=== PATIENT | female | born 1935 | race Caucasian/White ===

== ENCOUNTER 2017-09-27 16:16 | Inpatient (IN) | payer MEDICARE, OTHER ==
[~2017-09-27] VITALS: Ht 149.9 cm; Wt 60.8 kg
[~2017-09-27 16:16] MED LIST: ALEN70; AMLO5; AMLO5 PO; ASPI81CH PO; ASPI81EC; ATECHL; ATEN25 PO; ATEN50; ATOR10; Amlodipine Bes2.5 MG PO; BCOIRO PO; BILBERRY; CALCAVITDA PO; CHOL10002 PO; ERGO400 PO; EXTRA STRENGTH500 MG PO; FERR325 PO; GLUCHON PO; HYDACE10B PO; HYDACE5 PO; HYDCHL25; HYDR1TAB94 PO; Hair, Skin & N1 EACH PO; IBUP400; IBUP600 PO; IBUP800; JOINT HEALTH T1 EACH PO; K-Dur20 MEQ PO; LEVSOD75 PO; LOSA50 PO; LOSARTAN POTAS100 MG PO; MIRT15 PO; MULTIVITAMIN PO; MULVITA; NAPR500 PO; Norvasc2.5 MG PO; OLME20; OMEPRAZOLE MAGN20 MG PO; OXYB5 PO; OXYB5ER PO; Omeprazole20 M1 PO; PRAV20 PO; PRAVASTATIN SOD10 MG PO; PRED20 PO; PROM25 PO; Prilosec Otc20 MG PO; RANI150 PO; SPIHYD; Stool Softener100 MG PO; Synthroid75 MCG PO; TENORETIC PO; Tylenol325 MG PO; UNKNOWN CHOLESTEROL PO; Vitamin B Comple1 EA PO; Vitamin C100 M1 PO; Voltaren100 GM TP; [UNRECOGNIZED DRUG - OTHER] PO; [UNRECOGNIZED DRUG - OTHER] PO
[2017-10-19 04:30] LABS: BASOPHILS ABSOLUTE AUTO 0.02 K/mm3 (0.00-0.23); BASOPHILS PERCENT AUTO 0 % (0-2); EOSINOPHILS PERCENT AUTO 0 % (0-6); Hemoglobin 9.7 g/dL (11.5-16.0); IMMATURE GRAN ABSOLUTE AUTO 0.04 K/mm3 (0.00-0.10); IMMATURE GRAN PERCENT AUTO 0 % (0-1); LYMPHOCYTES PERCENT AUTO 13 % (21-46); MONOCYTES ABSOLUTE AUTO 1.16 K/mm3 (0.16-1.47); MONOCYTES PERCENT AUTO 11 % (4-13); Mean Corpuscular HGB 31.4 pg (26.0-34.0); Mean Corpuscular HGB Conc 33.4 g/dL (31.5-36.5); Mean Corpuscular Volume 94 fL (80-100); Mean Platelet Volume 8.9 fL (9.1-12.4); NEUTROPHILS ABSOLUTE AUTO 8.27 K/mm3 (1.96-9.15); NEUTROPHILS PERCENT AUTO 76 % (41-73); Platelet Count 299 K/mm3 (150-400); RDW Coefficient Variation 13.4 % (11.7-14.2); RDW Standard Deviation 45.6 fL (35.1-46.3); Red Blood Cell Count 3.09 M/mm3 (3.80-5.20); White Blood Cell Count 10.89 K/mm3 (4.00-11.30)
[2017-10-19 04:49] LABS: Anion Gap 8 mmol/L (6-16); Blood Urea Nitrogen 13 mg/dL (8-24); Bun/Creatinine Ratio 22.5 (12.0-20.0); CO2, Blood 27 mmol/L (21-32); Calcium, Blood 8.9 mg/dL (8.5-10.1); Chloride, Blood 102 mmol/L (98-108); Creatinine, Blood 0.58 mg/dL (0.40-1.00); Glomerular Filtration Rate >60 (60-); Glucose, Blood 117 mg/dL (70-99); Potassium, Blood 4.2 mmol/L (3.5-5.5); Sodium, Blood 137 mmol/L (136-145)
[2017-10-20] MEDS ORDERED: Percocet 5-3251 EACH PO (16:11)
[2017-10-20] MEDS ORDERED: ASPI325EC PO (16:12)
[2018-01-03] MEDS ORDERED: STOOL SOFTENER100 MG PO (09:04)
[2018-01-03] MEDS ORDERED: MOVE FREE JOIN1 EACH PO (09:05)
== END 2017-10-21 14:25 | disposition home health service (06) | DRG 470 ==
LOC: SURS 10-18 05:48 → PRE IP 10-18 07:30 → SURS 10-18 10:56
PROVIDERS: Orthopaedic Surgery
PROC: 8E0YXBZ Computer Assisted Procedure of Lower Extremity (ICD-10-PCS; 2017-10-18)
PROC: 0SRD0J9 Replacement of Left Knee Joint with Synthetic Substitute, Cemented, Open Approach (ICD-10-PCS; principal; 2017-10-18 07:30)
DX: M17.12 Unilateral primary osteoarthritis, left knee (principal); E03.9 Hypothyroidism, unspecified; I10 Essential (primary) hypertension; E78.00 Pure hypercholesterolemia, unspecified; M81.0 Age-related osteoporosis without current pathological fracture; I25.10 Atherosclerotic heart disease of native coronary artery without angina pectoris; K21.9 Gastro-esophageal reflux disease without esophagitis; Z79.899 Other long term (current) drug therapy
CPT/HCPCS: 36415; 73560-LT; 80048; 83735; 85025; 86850; 86900; 86901; 88300; 97110; 97116; 97161; 97530; C1713; C1776; G8978; G8979; G8980; J0171; J0690; J0735; J1100; J1170; J1885; J2250; J2370; J2405; J2550; J2765; J2795; J3010; J3370; J7120

== ENCOUNTER → 2017-11-06 | Outpatient (CLI) | payer MEDICARE, OTHER ==
[~2017-11-06] MED LIST changes: +ASPI325EC PO; +MOVE FREE JOIN1 EACH PO; +Percocet 5-3251 EACH PO; +STOOL SOFTENER100 MG PO
[2017-11-06 12:15] LABS: Source, Urine Clean Catch
[2017-11-06 14:46] LABS: Bilirubin, Urine Neg (Neg); Blood, Urine 4+ (Neg); Glucose Qualitative, Urine Neg (Neg); Ketones, Urine 2+ (Neg); Leukocyte Esterase, Urine 3+ (Neg); Nitrite, Urine Neg (Neg); Protein, Urine 3+ (Neg); Urobilinogen, Urine 1+ (Normal)
[2017-11-06 15:00] LABS: Appearance, Urine Cloudy (Clear); Color, Urine Yellow (P-Yellow)
[2017-11-06 15:01] LABS: Amorphous Light (0-Heavy); Bacteria Mod /hpf; Red Blood Cells, Urine TNTC /hpf (0-2); Squamous Epithelial Cells Few /hpf (Few); White Blood Cells, Urine TNTC /hpf (0-5)
== END ==
LOC: LAB SRC 12:14
PROVIDERS: Internal Medicine
DX: N39.0 Urinary tract infection, site not specified (principal)
CPT/HCPCS: 81001; 87077; 87086; 87186

== ENCOUNTER 2018-01-17 06:01 | Day surgery (SDC) | payer MEDICARE, OTHER ==
[~2018-01-17] VITALS: Ht 149.9 cm; Wt 62.6 kg
[2018-01-18 05:17] LABS: BASOPHILS ABSOLUTE AUTO 0.02 K/mm3 (0.00-0.23); BASOPHILS PERCENT AUTO 0 % (0-2); EOSINOPHILS ABSOLUTE AUTO 0.07 K/mm3 (0.00-0.68); EOSINOPHILS PERCENT AUTO 1 % (0-6); Hematocrit 30.9 % (33.0-51.0); Hemoglobin 10.3 g/dL (11.5-16.0); IMMATURE GRAN ABSOLUTE AUTO 0.03 K/mm3 (0.00-0.10); IMMATURE GRAN PERCENT AUTO 0 % (0-1); LYMPHOCYTES PERCENT AUTO 18 % (21-46); MONOCYTES ABSOLUTE AUTO 0.98 K/mm3 (0.16-1.47); MONOCYTES PERCENT AUTO 9 % (4-13); Mean Corpuscular HGB 30.6 pg (26.0-34.0); Mean Corpuscular HGB Conc 33.3 g/dL (31.5-36.5); Mean Corpuscular Volume 92 fL (80-100); Mean Platelet Volume 9.1 fL (9.1-12.4); NEUTROPHILS ABSOLUTE AUTO 7.49 K/mm3 (1.96-9.15); NEUTROPHILS PERCENT AUTO 71 % (41-73); Platelet Count 278 K/mm3 (150-400); RDW Coefficient Variation 13.5 % (11.7-14.2); RDW Standard Deviation 45.1 fL (35.1-46.3); Red Blood Cell Count 3.37 M/mm3 (3.80-5.20); White Blood Cell Count 10.49 K/mm3 (4.00-11.30)
[2018-01-18 05:30] LABS: Anion Gap 8 mmol/L (6-16); Blood Urea Nitrogen 10 mg/dL (8-24); Bun/Creatinine Ratio 16.7 (12.0-20.0); CO2, Blood 24 mmol/L (21-32); Calcium, Blood 8.6 mg/dL (8.5-10.1); Chloride, Blood 107 mmol/L (98-108); Glomerular Filtration Rate >60 (60-); Glucose, Blood 102 mg/dL (70-99); Magnesium, Blood 2.2 mg/dL (1.6-2.4); Sodium, Blood 139 mmol/L (136-145)
[2018-01-18] MEDS ORDERED: ASPI325EC PO (08:37)
[2018-01-18] MEDS ORDERED: Percocet 5-3251 EACH PO (08:38)
[2018-01-18] MEDS ORDERED: PROM25 PO (08:39)
== END 2018-01-18 11:24 | disposition home or self-care (01) ==
LOC: ORSCMMR 06:01 → PRE IP 06:01 → SURS 06:01 → PRE IP 07:30 → EDSTATUS 07:30 → SURS 10:40 → ORSCMMR 01-18 11:24
PROVIDERS: Orthopaedic Surgery
PROC: 0SRC0J9 Replacement of Right Knee Joint with Synthetic Substitute, Cemented, Open Approach (ICD-10-PCS; principal; 2018-01-17 07:30)
DX: M17.11 Unilateral primary osteoarthritis, right knee (principal); Z01.812 Encounter for preprocedural laboratory examination; Z01.818 Encounter for other preprocedural examination; I10 Essential (primary) hypertension; E03.9 Hypothyroidism, unspecified; Z79.899 Other long term (current) drug therapy
CPT/HCPCS: 36415; 73560-RT; 80048; 83735; 85025; 86850; 86900; 86901; 88300; 97110; 97116; 97162; 97530; C1713; C1776; G8978; G8979; J0171; J0690; J0735; J1100; J1885; J2250; J2405; J2795; J3010; J3370; J7120

== ENCOUNTER 2021-10-06 06:03 | Day surgery (SDC) | payer MEDICARE, OTHER ==
[~2021-10-06] VITALS: Ht 149.9 cm; Wt 66.8 kg
[~2021-10-06 06:03] MED LIST changes: -CALCAVITDA PO; +CALCIUM 500 MG1 EAC2 PO; +PEPCID20 MG PO; +POTCHL20ER PO
--- NOTE | 2021-10-06 06:20 | NUR ---
Ambulatory in Day Surgery. Pre-Op teaching done. Pt verbalizes understanding. Patient confirms NPO status and agrees with scheduled surgery. History, Chart, Medications and Allergies reviewed before start of procedure. Lungs clear T/O to Auscultation.
--- NOTE | 2021-10-06 13:54 | NUR ---
PATIENT CAME BACK FROM PACU TODAY 10/06/21 AT 1100. POD 0 LEFT TOTAL HIP PATIENT CAME BACK ALERT AND ORIENTED X4. VS ARE WNL AND IS ON RA. PAIN IS A 2/10 AND PATIENT REFUSES PAIN MEDICATION AT THIS TIME. LEFT HIP HAS 3 BULKY FOAM DRESSING THAT ARE C/D/I. SHE DENIES NUMBNESS AND TINGLING. PATIENT IS ABLE TO MOVE FINGERS AND TOES. TOLERATING SMALL AMOUNTS OF PO INTAKE. PATIENT IS VOIDING. SBA WITH FWW AND GAIT BELT. CALL LIGHT WITHIN REACH.
--- NOTE | 2021-10-06 16:40 | NUR ---
SHIFT SUMMARY: POD 0 LEFT TOTAL HIP PATIENT IS ALERT AND ORIENTED X4. VS ARE WNL AND IS ON RA. PAIN IS MANAGED WITH PO PAIN MEDICATION. PATIENT DID HAVE SMALL AMOUNT OF EMESIS RIGHT AFTER PACU BUT HAS SINCE BEEN TOLERATING PO INTAKE AFTER ZOFRAN AND PHENERGAN. SHE IS VOIDING YELLOW URINE. SHE IS A SBA TO THE BATHROOM WITH GAIT BELT AND FWW. LEFT HIP HAS GAUZE AND SPONGE DRESSING THAT IS C/D/I. DENIES NUMBNESS OR TINGLING. CALLS APPROPRIATELY. CALL LIGHT WITHIN REACH. THE PLAN IS TO CONTINUE PAIN MANAGEMENT AND TO WORK WITH PT AGIAN IN THE MORNING. POSSIBLE DISCHARGE HOME IF APPROPRIATE TOMORROW.
[2021-10-07 05:22] LABS: BASOPHILS ABSOLUTE AUTO 0.01 K/mm3 (0.00-0.23); BASOPHILS PERCENT AUTO 0 % (0-2); EOSINOPHILS PERCENT AUTO 0 % (0-6); Hemoglobin 9.3 g/dL (11.5-16.0); IMMATURE GRAN ABSOLUTE AUTO 0.03 K/mm3 (0.00-0.10); IMMATURE GRAN PERCENT AUTO 0 % (0-1); LYMPHOCYTES ABSOLUTE AUTO 1.37 K/mm3 (0.84-5.20); LYMPHOCYTES PERCENT AUTO 16 % (21-46); MONOCYTES ABSOLUTE AUTO 0.79 K/mm3 (0.16-1.47); MONOCYTES PERCENT AUTO 9 % (4-13); Mean Corpuscular HGB Conc 33.2 g/dL (31.5-36.5); Mean Corpuscular Volume 96 fL (80-100); Mean Platelet Volume 8.9 fL (9.1-12.4); NEUTROPHILS ABSOLUTE AUTO 6.51 K/mm3 (1.96-9.15); NEUTROPHILS PERCENT AUTO 75 % (41-73); Platelet Count 292 K/mm3 (150-400); RDW Coefficient Variation 13.9 % (11.7-14.2); RDW Standard Deviation 49.1 fL (35.1-46.3); Red Blood Cell Count 2.91 M/mm3 (3.80-5.20); White Blood Cell Count 8.71 K/mm3 (4.00-11.30)
[2021-10-07 05:25] LABS: Anion Gap 5 mmol/L (6-16); Blood Urea Nitrogen 14 mg/dL (8-24); Bun/Creatinine Ratio 18.7 (12.0-20.0); CO2, Blood 28 mmol/L (21-32); Calcium, Blood 8.6 mg/dL (8.5-10.1); Chloride, Blood 102 mmol/L (98-108); Creatinine, Blood 0.75 mg/dL (0.40-1.00); Glomerular Filtration Rate >60 (60-); Glucose, Blood 125 mg/dL (70-99); Potassium, Blood 4.3 mmol/L (3.5-5.5); Sodium, Blood 135 mmol/L (136-145)
--- NOTE | 2021-10-07 06:16 | NUR ---
ALERT AND ORIENTED X'S 4. NO ACUTE DISTRESS NOTED. RECEIVED SCHEDULED TYLENOL AND TORADOL FOR PAIN MANAGEMENT DUE TO LEFT HIP PAIN, EFFECTIVE RELIEF. TOLERATING PO FLUIDS, VOIDING WITHOUT DIFFICULTY. DRESSING CLEAN DRY AND INTACT TO LEFT HIP. AMBULATES WELL WITH WALKER WITH CONTACT GUARD. SAFETY MAINTAINED, CALL COLON IN REACH.
[2021-10-07] MEDS ORDERED: ENOX40I SC (08:54)
[2021-10-07] MEDS ORDERED: PROM25 PO (08:55)
[2021-10-07] MEDS ORDERED: ROXICODONE5 MG PO (08:55)
--- NOTE | 2021-10-07 12:26 | NUR ---
DISCHARGE SUMMARY PT A&OX4, VSS/RA, TIMOTHY PO, VOIDING, PAIN MANAGED WITH TYLENOL AND TORADOL.IV DCD. AMB SBA/FWW/GB. LEFT FLOOR VIA WC WITH SN, TO GO HOME WITH DAUGHTER, WITH ALL PERSONAL POSSESSIONS INCLUDING DC PACKET, 2 AQUACEL DRESSINGS; PT REP HAVING HER LOVENOX AND NARCOTIC SCRIPTS FILLED AND AT HOME.
== END 2021-10-07 12:25 | disposition home or self-care (01) ==
LOC: ORSCMMR 06:03 → SURS 11:09 → ORSCMMR 10-07 12:25
PROVIDERS: Orthopaedic Surgery
PROC: 0SRB01A Replacement of Left Hip Joint with Metal Synthetic Substitute, Uncemented, Open Approach (ICD-10-PCS; principal; 2021-10-06 07:30)
PROC: 8E0YXBZ Computer Assisted Procedure of Lower Extremity (ICD-10-PCS; principal; 2021-10-06 07:30)
DX: M16.12 Unilateral primary osteoarthritis, left hip (principal); I10 Essential (primary) hypertension; E03.9 Hypothyroidism, unspecified; Z96.641 Presence of right artificial hip joint; Z96.653 Presence of artificial knee joint, bilateral
CPT/HCPCS: 36415; 72170; 80048; 83735; 85025; 97110; 97116; 97162; 97165; 97530; 97535; A9270; C1713; C1776; J0171; J0690; J0735; J1100; J1650; J1885; J2250; J2370; J2405; J2704; J2795; J3010; J3370; J7050; J7120

== ENCOUNTER → 2022-09-19 | Outpatient (CLI) | payer MEDICARE, OTHER ==
[~2022-09-19] MED LIST changes: +ENOX40I SC; +ROXICODONE5 MG PO
== END | disposition home or self-care (01) ==
LOC: LAB 14:43 → LAB SHORT 14:43
DX: D23.5 Other benign neoplasm of skin of trunk (principal)
CPT/HCPCS: 88305

== ENCOUNTER → 2024-11-15 | Outpatient (CLI) | payer MEDICARE, OTHER ==
[~2024-11-15] MED LIST changes: +CEPH500 PO; +ONDA4ODT MM
[2024-11-15 12:42] LABS: BASOPHILS ABSOLUTE AUTO 0.07 K/mm3 (0.00-0.23); BASOPHILS PERCENT AUTO 1 % (0-2); EOSINOPHILS ABSOLUTE AUTO 0.09 K/mm3 (0.00-0.68); EOSINOPHILS PERCENT AUTO 1 % (0-6); Hemoglobin 13.7 g/dL (11.5-16.0); IMMATURE GRAN ABSOLUTE AUTO 0.02 K/mm3 (0.00-0.10); IMMATURE GRAN PERCENT AUTO 0 % (0-1); LYMPHOCYTES ABSOLUTE AUTO 2.53 K/mm3 (0.84-5.20); LYMPHOCYTES PERCENT AUTO 40 % (21-46); MONOCYTES ABSOLUTE AUTO 0.43 K/mm3 (0.16-1.47); MONOCYTES PERCENT AUTO 7 % (4-13); Mean Corpuscular HGB 32.1 pg (26.0-34.0); Mean Corpuscular HGB Conc 32.6 g/dL (31.5-36.5); Mean Corpuscular Volume 98 fL (80-100); Mean Platelet Volume 10.2 fL (9.1-12.4); NEUTROPHILS ABSOLUTE AUTO 3.27 K/mm3 (1.96-9.15); NEUTROPHILS PERCENT AUTO 51 % (41-73); Platelet Count 321 K/mm3 (150-400); RDW Standard Deviation 50.3 fL (35.1-46.3); Red Blood Cell Count 4.27 M/mm3 (3.80-5.20); White Blood Cell Count 6.41 K/mm3 (4.00-11.30)
[2024-11-15 12:56] LABS: Albumin, Blood 3.4 g/dL (3.4-5.0); Albumin/Globulin Ratio 0.9 (0.8-1.8); Bilirubin, Total 0.3 mg/dL (0.1-1.0); Bun/Creatinine Ratio 19.7 (12.0-20.0); Calcium, Blood 9.3 mg/dL (8.5-10.1); Creatinine, Blood 0.51 mg/dL (0.40-1.00); Globulin, Blood 3.7 g/dL (2.2-4.0); Potassium, Blood 3.6 mmol/L (3.5-5.5); Thyroid Stimulating Hormone 8.36 uIU/mL (0.360-4.800); Total Protein, Blood 7.1 g/dL (6.4-8.2)
== END ==
LOC: LAB 09:19 → LAB SHORT 09:19
PROVIDERS: Internal Medicine
DX: R39.9 Unspecified symptoms and signs involving the genitourinary system (principal); R63.4 Abnormal weight loss
CPT/HCPCS: 80053; 84443; 85025

== ENCOUNTER → 2024-11-19 | Outpatient (CLI) | payer MEDICARE, OTHER ==
[2024-11-19 12:30] LABS: Source, Urine Clean Catch
[2024-11-19 13:31] LABS: Bilirubin, Urine Neg (Neg); Blood, Urine Neg (Neg); Color, Urine Yellow (P-Yellow); Glucose Qualitative, Urine Neg (Neg); Ketones, Urine Neg (Neg); Leukocyte Esterase, Urine 1+ (Neg); Nitrite, Urine Neg (Neg); Protein, Urine 1+ (Neg); Urobilinogen, Urine NORM (Normal); pH, Urine 6.5 (5.0-8.0)
[2024-11-19 13:53] LABS: Appearance, Urine Hazy (Clear)
[2024-11-19 13:54] LABS: Bacteria Mod /hpf; Mucus Light (0-Heavy); Red Blood Cells, Urine 0-2 /hpf (0-2); Squamous Epithelial Cells Rare /hpf (Few)
== END ==
LOC: LAB 10:45 → LAB SHORT 10:45
PROVIDERS: Internal Medicine
DX: N39.0 Urinary tract infection, site not specified (principal)
CPT/HCPCS: 81001; 87086

== ENCOUNTER → 2024-12-30 | Outpatient (CLI) | payer MEDICARE, OTHER ==
[2024-12-30 17:36] LABS: BASOPHILS ABSOLUTE AUTO 0.05 K/mm3 (0.00-0.23); BASOPHILS PERCENT AUTO 1 % (0-2); EOSINOPHILS PERCENT AUTO 2 % (0-6); Hematocrit 37.2 % (33.0-51.0); Hemoglobin 12.4 g/dL (11.5-16.0); IMMATURE GRAN PERCENT AUTO 0 % (0-1); LYMPHOCYTES ABSOLUTE AUTO 2.26 K/mm3 (0.84-5.20); LYMPHOCYTES PERCENT AUTO 41 % (21-46); MONOCYTES ABSOLUTE AUTO 0.46 K/mm3 (0.16-1.47); MONOCYTES PERCENT AUTO 8 % (4-13); Mean Corpuscular HGB 32.2 pg (26.0-34.0); Mean Corpuscular HGB Conc 33.3 g/dL (31.5-36.5); Mean Corpuscular Volume 97 fL (80-100); Mean Platelet Volume 9.4 fL (9.1-12.4); NEUTROPHILS ABSOLUTE AUTO 2.66 K/mm3 (1.96-9.15); NEUTROPHILS PERCENT AUTO 48 % (41-73); Platelet Count 333 K/mm3 (150-400); Red Blood Cell Count 3.85 M/mm3 (3.80-5.20); White Blood Cell Count 5.53 K/mm3 (4.00-11.30)
[2024-12-30 20:04] LABS: Albumin, Blood 3.1 g/dL (3.4-5.0); Bilirubin, Total 0.3 mg/dL (0.1-1.0); Bun/Creatinine Ratio 13.7 (12.0-20.0); Calcium, Blood 8.8 mg/dL (8.5-10.1); Creatinine, Blood 0.59 mg/dL (0.40-1.00); Potassium, Blood 3.7 mmol/L (3.5-5.5); Thyroid Stimulating Hormone 1.42 uIU/mL (0.360-4.800); Total Protein, Blood 6.1 g/dL (6.4-8.2)
== END | disposition home or self-care (01) ==
LOC: LAB 15:51 → LAB SHORT 15:51
PROVIDERS: Internal Medicine
DX: M79.10 Myalgia, unspecified site (principal); E03.9 Hypothyroidism, unspecified
CPT/HCPCS: 80053; 84443; 85025; 85651

== ENCOUNTER 2025-01-14 11:09 | Emergency (ER) | payer MEDICARE, OTHER ==
[~2025-01-14] VITALS: Ht 147.3 cm; Wt 49.9 kg
[2025-01-14] MEDS ORDERED: Ondansetron HCl 2 MG / ML 2ML Vial IV ONE (11:45)
[2025-01-14] MEDS ORDERED: FentaNYL Citrate 50 MCG/ML 2 ML Injection IV ONE (11:45)
[2025-01-14 12:07] LABS: BASOPHILS ABSOLUTE AUTO 0.02 K/mm3 (0.00-0.23); BASOPHILS PERCENT AUTO 0 % (0-2); EOSINOPHILS PERCENT AUTO 0 % (0-6); Hematocrit 39.5 % (33.0-51.0); Hemoglobin 13.1 g/dL (11.5-16.0); IMMATURE GRAN ABSOLUTE AUTO 0.03 K/mm3 (0.00-0.10); IMMATURE GRAN PERCENT AUTO 0 % (0-1); LYMPHOCYTES ABSOLUTE AUTO 0.96 K/mm3 (0.84-5.20); LYMPHOCYTES PERCENT AUTO 9 % (21-46); MONOCYTES ABSOLUTE AUTO 0.66 K/mm3 (0.16-1.47); MONOCYTES PERCENT AUTO 6 % (4-13); Mean Corpuscular HGB 32.1 pg (26.0-34.0); Mean Corpuscular HGB Conc 33.2 g/dL (31.5-36.5); Mean Corpuscular Volume 97 fL (80-100); Mean Platelet Volume 9.2 fL (9.1-12.4); NEUTROPHILS PERCENT AUTO 84 % (41-73); Platelet Count 334 K/mm3 (150-400); RDW Standard Deviation 50.3 fL (35.1-46.3); Red Blood Cell Count 4.08 M/mm3 (3.80-5.20); White Blood Cell Count 10.27 K/mm3 (4.00-11.30)
[2025-01-14 12:35] LABS: Bun/Creatinine Ratio 12.7 (12.0-20.0); Calcium, Blood 9.1 mg/dL (8.5-10.1); Creatinine, Blood 0.55 mg/dL (0.40-1.00); Potassium, Blood 3.6 mmol/L (3.5-5.5)
[2025-01-14] MEDS ORDERED: HYDR1TAB94 PO (16:12)
[2025-01-14] MEDS ORDERED: DOC250 PO (16:12)
[2025-01-14 17:30] VITALS: BP 153/96
== END 2025-01-14 17:36 | disposition home or self-care (01) ==
LOC: ER 11:09
PROVIDERS: Emergency Medicine
DX: S72.141A Displaced intertrochanteric fracture of right femur, initial encounter for closed fracture (principal); M97.01XA Periprosthetic fracture around internal prosthetic right hip joint, initial encounter; M81.0 Age-related osteoporosis without current pathological fracture; I10 Essential (primary) hypertension; E78.5 Hyperlipidemia, unspecified; E03.9 Hypothyroidism, unspecified; Z96.643 Presence of artificial hip joint, bilateral; Z88.6 Allergy status to analgesic agent; Z88.8 Allergy status to other drugs, medicaments and biological substances; Z79.890 Hormone replacement therapy; Z79.899 Other long term (current) drug therapy; W18.30XA Fall on same level, unspecified, initial encounter
CPT/HCPCS: 72192; 73502; 80048; 85025; 96374; 96375; 99284-25; J2405; J3010

== ENCOUNTER 2025-04-25 09:42 | Inpatient (IN) | payer MEDICARE, OTHER ==
[~2025-04-25] VITALS: Ht 154.9 cm; Wt 51.0 kg
[~2025-04-25 09:42] MED LIST changes: +DOC250 PO
[2025-04-25] MEDS ORDERED: Ondansetron HCl 2 MG / ML 2ML Vial IV ONE (10:20)
[2025-04-25] MEDS ORDERED: LORazepam 2 MG/ML 1ML Injection IV ONE (10:55)
[2025-04-25] MEDS ORDERED: Morphine Sulfate 4 MG/1 ML Injection IV ONE (10:55)
[2025-04-25 12:55] LABS: BASOPHILS ABSOLUTE AUTO 0.05 K/mm3 (0.00-0.23); BASOPHILS PERCENT AUTO 1 % (0-2); EOSINOPHILS ABSOLUTE AUTO 0.08 K/mm3 (0.00-0.68); EOSINOPHILS PERCENT AUTO 1 % (0-6); Hematocrit 39.9 % (33.0-51.0); Hemoglobin 13.2 g/dL (11.5-16.0); IMMATURE GRAN ABSOLUTE AUTO 0.02 K/mm3 (0.00-0.10); IMMATURE GRAN PERCENT AUTO 0 % (0-1); LYMPHOCYTES ABSOLUTE AUTO 1.98 K/mm3 (0.84-5.20); LYMPHOCYTES PERCENT AUTO 26 % (21-46); MONOCYTES ABSOLUTE AUTO 0.42 K/mm3 (0.16-1.47); MONOCYTES PERCENT AUTO 6 % (4-13); Mean Corpuscular HGB Conc 33.1 g/dL (31.5-36.5); Mean Corpuscular Volume 97 fL (80-100); NEUTROPHILS ABSOLUTE AUTO 5.01 K/mm3 (1.96-9.15); NEUTROPHILS PERCENT AUTO 66 % (41-73); NRBC ABSOLUTE 0.00 K/mm3 (0.00-0.02); NRBC Auto 0.0 /100 WBC (0.0-0.2); Platelet Count 341 K/mm3 (150-400); RDW Coefficient Variation 14.6 % (11.7-14.2); RDW Standard Deviation 52.4 fL (35.1-46.3)
[2025-04-25 13:18] LABS: Alanine Aminotransfer (ALT/SGP 16.0 U/L (12-78); Albumin, Blood 3.4 g/dL (3.4-5.0); Albumin/Globulin Ratio 0.9 (0.8-1.8); Anion Gap 10.0 mmol/L (3-11); Aspartate Aminotrans (AST/SGOT 33.0 U/L (12-37); Bilirubin, Total 0.7 mg/dL (0.1-1.0); Blood Urea Nitrogen 7.0 mg/dL (8-24); CO2, Blood 26.0 mmol/L (21-32); Calcium, Blood 9.2 mg/dL (8.5-10.1); Chloride, Blood 105.0 mmol/L (98-108); Creatinine, Blood 0.48 mg/dL (0.40-1.00); Globulin, Blood 3.8 g/dL (2.2-4.0); Glucose, Blood 135.0 mg/dL (70-99); Potassium, Blood 4.0 mmol/L (3.5-5.5); Sodium, Blood 137.0 mmol/L (136-145); Total Protein, Blood 7.2 g/dL (6.4-8.2)
[2025-04-25] MEDS ORDERED: Morphine Sulfate 4 MG/1 ML Injection IV PRN (15:15)
[2025-04-25 16:55] VITALS: BP 137/77
[2025-04-25] MEDS ORDERED: EUTHYROX88 MC1 PO (16:56)
[2025-04-25] MEDS ORDERED: MIRTAZAPINE TAB 7.5 (16:57)
[2025-04-25] MEDS ORDERED: ZOLOFT25 MG PO (16:57)
[2025-04-25] MEDS ORDERED: OMEPRAZOLE CAP 20M ×2 (16:57→17:05)
[2025-04-25] MEDS ORDERED: HYDROCODONE-AC1 EA19 PO (17:02)
[2025-04-25] MEDS ORDERED: REMERON1510 PO (17:04)
[2025-04-25 19:47] VITALS: BP 174/138
[2025-04-25 19:55] VITALS: BP 142/70
[2025-04-26 04:09] VITALS: BP 158/59
--- NOTE | 2025-04-26 04:37 | NUR ---
SHIFT SUMMARY NOC PT A/O TO SELF. CONFUSED AND SLEPT FOR MAJORITY OF SHIFT. VSS. PT UNABLE TO TAKE BEDTIME RX DUE TO BEING LETHARGIC BUT BECAME MORE ALERT THIS AM AND GIVEN PAIN RX FOR 10/10 PAIN. PT HAS BUCKS TRACTION IN PLACE FOR R HIP FX. PT ON 2L/NC SPO2 >92%. PT HAS PALLIATIVE CARE CONSULT FOR TODAY TO DISCUSS POSSIBLE HOSPICE/COMFORT CARE MEASURES. PT ALSO HAS PUREWICK IN PLACE WITH SCANT OUTPUT, PT IS NOT EATING OR DRINKING ANYTHING. PT CURRENTLY RESTING WITH BED ALARM ON, BED IN LOWEST POSITION, AND CALL LIGHT WITHIN REACH.
[2025-04-26 05:28] LABS: BASOPHILS ABSOLUTE AUTO 0.03 K/mm3 (0.00-0.23); BASOPHILS PERCENT AUTO 0 % (0-2); EOSINOPHILS ABSOLUTE AUTO 0.01 K/mm3 (0.00-0.68); EOSINOPHILS PERCENT AUTO 0 % (0-6); Hematocrit 34.2 % (33.0-51.0); Hemoglobin 11.0 g/dL (11.5-16.0); IMMATURE GRAN ABSOLUTE AUTO 0.03 K/mm3 (0.00-0.10); IMMATURE GRAN PERCENT AUTO 0 % (0-1); LYMPHOCYTES ABSOLUTE AUTO 1.67 K/mm3 (0.84-5.20); LYMPHOCYTES PERCENT AUTO 18 % (21-46); MONOCYTES ABSOLUTE AUTO 0.78 K/mm3 (0.16-1.47); MONOCYTES PERCENT AUTO 9 % (4-13); Mean Corpuscular HGB Conc 32.2 g/dL (31.5-36.5); NEUTROPHILS ABSOLUTE AUTO 6.59 K/mm3 (1.96-9.15); NEUTROPHILS PERCENT AUTO 72 % (41-73); NRBC ABSOLUTE 0.00 K/mm3 (0.00-0.02); NRBC Auto 0.0 /100 WBC (0.0-0.2); Platelet Count 273 K/mm3 (150-400); RDW Coefficient Variation 14.9 % (11.7-14.2); RDW Standard Deviation 56.0 fL (35.1-46.3)
[2025-04-26 05:39] LABS: Mean Corpuscular Volume 102 fL (80-100)
[2025-04-26 05:42] LABS: Anion Gap 8.0 mmol/L (3-11); Blood Urea Nitrogen 14.0 mg/dL (8-24); CO2, Blood 29.0 mmol/L (21-32); Calcium, Blood 8.8 mg/dL (8.5-10.1); Chloride, Blood 105.0 mmol/L (98-108); Creatinine, Blood 0.8 mg/dL (0.40-1.00); Glucose, Blood 121.0 mg/dL (70-99); Potassium, Blood 3.8 mmol/L (3.5-5.5); Sodium, Blood 138.0 mmol/L (136-145)
[2025-04-26 07:38] VITALS: BP 148/77
[2025-04-26] MEDS ORDERED: Multivitamins/Minerals 1 Tab PO SCH (09:00)
[2025-04-26] MEDS ORDERED: Morphine Sulfate 20 MG/1ML 1 ML Oral Syringe SL PRN (13:20)
[2025-04-26] MEDS ORDERED: Atropine Sulfate 1% Opth Soln 2ML BTL SL PRN (13:25)
[2025-04-26 15:15] VITALS: BP 123/101
--- NOTE | 2025-04-26 15:33 | NUR ---
SPOKE WITH PT'S NICOLAS AND JOSIE AMEZCUA. SEVEN REPORTS THE PATIENT HAS BEEN ON HOSPICE SINCE JANUARY OF THIS YEAR. SEVEN WAS TEARFUL, STATES FRUSTRATION DUE TO LACK OF COMMUNICATION FROM HOSPICE AGENCY SINCE JANUARY ADMISSION. SHE ASKS THAT HOSPICE REFERRAL BE SENT TO [facility], SHE PLANS TO REVOKE WITH CURRENT AGENCY. NOTIFIED CURRENT HOSPICE AGENCY, AND SENT REFERRAL TO [facility] PER SEVEN'S REQUEST. PT PLACED ON COMFORT CARE ALSO REQUESTED BY NICOLAS AMEZCUA. THE PATIENT SUSTAINED R FEMORAL SPIRAL FRACTURE R/T A FALL AT HER RESIDENCE, [place]. PLAN IS FOR PT TO RETURN TO [place] WITH [facility] HOSPICE ADMISSION ON 04/28.
--- NOTE | 2025-04-26 17:50 | NUR ---
SHIFT SUMMARY PT ORIENTED TO SELF ONLY, SLEPT MOST OF SHIFT. BUCKS TRACTION IN PLACE ON RLE. PT C/O LEG PAIN WHEN REPOSITIONING, MEDICATED PER EMAR PRIOR TO ANTICIPATED MOVEMENTS. PT REFUSED MEALS TODAY. COMFORT CARE ORDERED AND PT TO DC ON HOSPICE POSSIBLY ON MONDAY. PUREWICK IN PLACE WITH SCANT AMOUNT OF URINE, BRIEF CLEAN AND DRY.
--- NOTE | 2025-04-27 04:00 | NUR ---
SHIFT SUMMARY NOC PT A/O TO SELF. CONFUSED AND DOES NOT FOLLOW COMMANDS. ON COMFORT CARE MEASURES. ROXANOL GIVEN FOR PAIN PRIOR TO REPOSITIONING. PT APPETITE BETTER THEY DRANK 2 CHOCOLATE ENSURES. 5 LB BUCKS TRACTION IN PLACE FOR R HIP FX. PUREWICK IN PLACE FOR INCONTINENCE. PT CURRENTLY RESTING WITH BED ALARM ON, BED IN LOWEST POSITION, AND CALL LIGHT WITHIN REACH.
--- NOTE | 2025-04-27 14:52 | NUR ---
report to Ginger/ nurse medical floor.
--- NOTE | 2025-04-27 15:12 | NUR ---
TRANSFER NOTE PT TRANSFERRED FROM SURGICAL FLOOR, REPORT RECEIVED FROM NATI LAM. APARNA TRACTION IN PLACE. PT ON COMFORT CARE MEASURES. PT APPEARS COMFORTABLE.
--- NOTE | 2025-04-27 18:49 | NUR ---
ADMIT 04/25/25 AFTER FALL FROM SEATED POSITION TO R KNEE, FRACTURE R DISTAL FEMUR. COMFORT CARE. NON-OP TX WITH 5 LB GARVIN'S TRACTION. TRANSFER FROM SURGICAL TO MED FLOOR 04/28/25. PLAN FOR D/C TO [place] 04/28/25. REGULAR DIET, TOLERATED PUDDING WELL WITH THIS RN. PER REPORT TAKES MEDS WHOLE WITH WATER. DOES HAVE DEMENTIA WITH BASELINE OF A&OX1 TO SELF. MINIMAL PHYSICAL AND VERBAL AGGRESSION NOTED WITH INCREASED DISCOMFORT DURING REPOSITIONING. DOES NOT USE CALL LIGHT OR ATTEMPT BED EXITING. WILL REPLY TO SIMPLE YES/NO QUESTIONING. DEPENDS IN PLACE WITH SCANT DARK YELLOW-BROWN URINE OUTPUT. PT MEDICATED PER EMAR.
--- NOTE | 2025-04-28 05:51 | NUR ---
SHIFT SUMMARY PT CONTINUES TO BE COMFORT CARE. 5# GARVIN'S TRACTION MAINTAINED TO RLE. PT TURNED AND REPOSITIONED THROUGH THE NIGHT. PT REFUSING MOST OFFERED PO FLUIDS- TOOK A COUPLE OF SIPS OF ENSURE. PT WITHOUT URINE OUTPUT THIS SHIFT. PT MEDICATED FOR PAIN WITH ROXINOL X1 PER EMAR. SLEPT LONG INTERVALS DURING THE NIGHT. ANTICIPATING D/C BACK TO [facility] WITH HOSPICE.
[2025-04-28] MEDS ORDERED: ATROPINE SULFATE2 M1 SL (12:14)
[2025-04-28] MEDS ORDERED: Ativan1 MG PO (12:15)
[2025-04-28] MEDS ORDERED: MORP20L PO (12:17)
[2025-04-28] MEDS ORDERED: TRANSDERM-SCOP1 EA13 TD (12:17)
--- NOTE | 2025-04-28 15:27 | NUR ---
PT DISCHAIRGED BACK TO [facility] ON HOSPICE. THIS RN CALLED REPORT TO FIDE. TRANSPORTATION CO TRANSFERRED PT [email or web address] [email or web address]. PREMEDICATED PT FOR TRANSFER WITH ROXINOL 10MG.
== END 2025-04-28 12:53 | disposition hospice, home (50) | DRG 534 ==
LOC: ER 09:42 → SURS 15:13 → MEDS 15:13 → SURS 16:20 → MEDS 04-27 15:02 → ENPENDDIS 04-28 11:32 → MEDS 04-28 12:53
PROVIDERS: Physician Assistant; ADMIT Family Medicine
DX: S72.351A Displaced comminuted fracture of shaft of right femur, initial encounter for closed fracture (principal); M97.11XA Periprosthetic fracture around internal prosthetic right knee joint, initial encounter; I10 Essential (primary) hypertension; E78.5 Hyperlipidemia, unspecified; E03.9 Hypothyroidism, unspecified; D64.9 Anemia, unspecified; K21.9 Gastro-esophageal reflux disease without esophagitis; Z66 Do not resuscitate; Z51.5 Encounter for palliative care; M81.0 Age-related osteoporosis without current pathological fracture; F03.90 Unspecified dementia, unspecified severity, without behavioral disturbance, psychotic disturbance, mood disturbance, and anxiety; R29.6 Repeated falls; Z96.643 Presence of artificial hip joint, bilateral; Z96.653 Presence of artificial knee joint, bilateral; Z88.6 Allergy status to analgesic agent; Z88.8 Allergy status to other drugs, medicaments and biological substances; Z79.890 Hormone replacement therapy; Z79.891 Long term (current) use of opiate analgesic; Z79.899 Other long term (current) drug therapy; Z98.891 History of uterine scar from previous surgery; Z98.890 Other specified postprocedural states; W18.30XA Fall on same level, unspecified, initial encounter
CPT/HCPCS: 36415; 70450; 72170; 73552; 80048; 80053; 85025; 96374; 96375; 99285-25; A9270; J2060; J2270; J2405